=== PATIENT | female | born 1955 | race Caucasian/White ===

== ENCOUNTER 2024-03-31 09:10 | Emergency (ER) | payer MEDICARE, BC, SELFPAY ==
[2024-03-31] VITALS (7 sets, daily range): BP systolic 133–139; BP diastolic 55–80; PULSE 58–72; RESP 18; TEMP 37.1; O2SAT 98–100; BMI 22.0
--- NOTE | 2024-03-31 09:34 | CRLHL7_ITS ---
For Patients: As a result of the Century Cures Act, medical imaging exams and procedure reports are released immediately into your electronic medical record. You may view this report before your referring provider. If you have questions, please contact your health care provider. INDICATION: Swelling left side of jaw. Told on she has infection of old root canal. On antibiotics. Now has difficulty swallowing. TECHNIQUE: Axial intravenously infused CT cuts were performed from above the skullbase to the superior mediastinum. 75 mL of Isovue-370 was injected intravenously. FINDINGS: There is abundant streak artifact arising from dental amalgam. There is no osseous or soft tissue abscess identified although there is soft tissue edema adjacent to the left side of the mandible with mild mass-effect upon the left side of the oropharyngeal airway. The left piriform sinus is effaced. There is no abscess in this location. The left submandibular gland is mildly swollen and therefore the source of inflammation may be a mild left submandibular sialadenitis. There is no underlying salivary calculus. There is no lymphadenopathy between the skullbase and superior mediastinum. The major salivary glands and the thyroid gland appear normal. There is a small mucous retention cyst within the right maxillary sinus. The other paranasal sinuses appear normally aerated. No mucosal abnormality is identified within the nasal cavity or oral cavity. The visualized brain and orbits appear normal. There are no nodules or masses apices. Impression : There is no osseous or soft tissue abscess identified although there is soft tissue edema adjacent to the left side of the mandible with mild mass-effect upon the left side of the oropharyngeal airway. The left piriform sinus is effaced. There is no abscess in this location. The left submandibular gland is mildly swollen and therefore the source of inflammation may be a mild left submandibular sialadenitis. There is no underlying salivary calculus. Please note that all CT scans at this facility use dose modulation, iterative reconstruction, and/or weight-based dosing when appropriate to reduce radiation dose to as low as reasonably achievable. Dictated by Uriel Carr MD @ 03/31/2024 10:55:27 AM (Electronically Signed)
[2024-03-31 09:55] LABS: Creatinine, Point-of-Care* 0.8 mg/dl (0.6-1.3)
--- OUTSIDE RECORDS SUMMARY | 2024-03-31 10:04 | XMS_ITS | Clinical Summary ---
Author Organization [facility] Address [place], [place] [address] Care Team Providers Care Director Post Name Role Phone Esther Gibbons MD Unavailable [phone] Zhanna Romano Primary Care Provider Allergies Active Allergy Reactions Criticality Noted Date Comments Cats (Fur, Dander, Saliva) Other - Describe In Comment Field 09/24/2014 Dry eyes Medications Medication Sig Dispensed Refills Start Date End Date Status FA/MV,CA,IRON,MIN/L YCOPENE/LUT (MULTIVITAL ORAL) Take 1 Tab by mouth once daily. Active Cholecalciferol, Vitamin D3, (VITAMIN D-3) 5,000 unit tab Take 5,000 Units by mouth once daily. Active zolpidem (AMBIEN) 5 mg tabletIndications:O ther insomnia Take 1 Tablet (5 mg) by mouth at bedtime if needed for Sleep. 30 Tablet 11/07/2023 Active pregabalin (LYRICA) 100 mg capsuleIndications: Lumbar disc herniation,Chronic bilateral low back pain with right-sided sciatica Take 1 Capsule (100 mg) by mouth two times daily. 180 Capsule 3 02/17/2024 Active estradioL (ESTRACE) 0.01% (0.1 mg/g) vaginal creamIndications:Po stmenopausal INSERT 2 GRAMS VAGINALLY THREE TIMES PER WEEK 85 g 1 02/17/2024 Active tiZANidine (ZANAFLEX) 4 mg tabletIndications:L umbar disc herniation,Chronic bilateral low back pain with right-sided sciatica Take 1 Tablet (4 mg) by mouth every 8 hours if needed for Muscle Spasm. 60 Tablet 1 02/17/2024 Active methocarbamoL (ROBAXIN) 500 mg tabletIndications:L umbar disc herniation Take 1 Tablet (500 mg) by mouth every 8 hours if needed (muscle pain and spasm). 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 Ovarian mass 09/18/2014 Adnexal mass 09/16/2014 Colon polyp 09/16/2009 Overview (03/18/2016): Colonoscopy 09/2009 polyp repeat in 5 years Colonoscopy 03/2016 polyp repeat in 5 years Unspecified asthma(493.90) 04/12/2007 Allergic rhinitis, cause unspecified 04/12/2007 Resolved Problems Problem Noted Date Diagnosed Date Resolved Date Postmenopausal bleeding 09/16/201411/14 Encounters Date Type Department Care Team Description 03/30/2024 Refill [facility] [address] [place] [address] Zhanna Romano PA Refill Request (Tizanidine) 03/19/2024 12:30 PM SAAS ARCHITECT Procedure Only [facility] [address] [place] [id number] Erin Dyson L Ac Acupuncture 03/19/2024 Travel 03/08/2024 11:30 AM CDT Procedure Only [facility] [address] [place] [address] Erin Dyson L Ac Acupuncture 03/08/2024 Travel 03/01/2024 11:30 AM CDT Procedure [place] [address] [place] [id number] Erin Dyson L Ac Acupuncture 03/01/2024 Travel 02/24/2024 12:00 PM CDT Procedure Only [facility] [address] [facility] [place] [id number] Erin Dyson L Ac Acupuncture 02/23/2024 Travel 02/17/2024 10:30 AM CDT Office Visit [address] [place] [address] Zhanna Romano PA Medicare ANNUAL (subsequent) Visit (68 years old); Musculoskeletal Problem (Having a hard time sleeping due to disc issues - wondering about muscle relaxers. - Is taking a lot of ibuprofen, what other options are there?) 02/17/2024 Travel from Last 3 Months Immunizations Name Administration Dates Next Due AMB INFLUENZA, IIV4 (AGE=>6M OS) MDV (Flu Clinic Only) 02/20/2018 AMB Influenza, IIV3 (Age >=3 years)(Flu Clinic Only) 03/07/2013,02/01/2012,03/08/2011,2009,03/12/2008 AMB Influenza, IIV4 PF (=>6 mos Flulaval,Fluzone Fluarix)(Flu Clinic Only) 02/16/2019,03/19/2014 COVID-19 vaccine (Moderna 100mcg/0.5mL) PF, MDV 08/05/2020 Influenza A (H1N1), Inactivated 04/16/2009 Influenza A (H1N1), Inactiva jayden (Age >=3 Years) 04/16/2009 Influenza, IIV3 (Age 6-35 mos) 03/08/2011 Influenza, IIV3 (Age >=3 years) 03/07/20 13,02/01/2012,03/24/2010,2008,03/12/2008,04/12/2007,03/19/2006,1 ,02/27/2004 Influenza, IIV4 01/26/2017, 6,03/13/2015,2013 Influenza, IIV4 (=>6mos) MDV 02/21/2018 Influenza, Inactivated AIIV4 (Age 65+ Years) Preserv Free 02/15/2023 Influenza, Inactivated IIV3 (Age 65+ Years) Preserv Free 02/17/2024 Influenza,CCIIV4 PRESERV FREE 02/20/2020 Pneumococcal Conj 20-valent (Prevnar 20) 12/08/2021 Td (Age >=7 Years) 08/23/2005 Td, Preservative Free (age > = 7 Years) 07/13/2017 Tdap 04/12/2007 Zoster (Shingrix-RZV, recombinant) 10/25/2018, Family History Medical History Relation Name Comments Good Health Brother 1 Hyperlipidemia Brother 2 Hyperlipidemia Brother 3 Heart Disease Father blocked vein; stint place, age 90 Diabetes Mother type II, age mi d 70's Alcohol/Drug Paternal Grandfather alcohol Heart Disease Paternal Grandfather NC 50' s Good Health Sister Cancer-breast No Family History Relation Name Status Comments Brother 1 Brother 2 Brother 3 Father Mother Paternal Grandfather Sister Social History Tobacco Use Types Packs/Day Years Used Date Smoking Tobacco: Never Smokeless Tobacco: Never Tobacco Cessation:Counseling Given: Yes Alcohol Use Standard Drinks/Week Comments Yes 2 (1 standard drink = 0.6 oz pur e alcohol) occasionally, maybe 2/wk PHQ-2 Answer Date Recorded PHQ-2 TOTAL SCORE 0 02/17/2024 Social Connections Answer Date Recorded Do you often feel lonely or isolated from those around you? 0 02/17/2024 Financial Resource Strain Answer Date R ecorded Difficulty of Paying Living Expenses 3 02/17/2024 Difficulty of Paying Living Expenses Not on file 02/17/2024 Food Insecurity Answer Date Recorded Do you worry your food will run out before you are able to buy more? 1 02/17/2024 Transportation Needs Answer Date Record ed Does lack of transportation keep you from medica l appointments? 1 02/17/2024 Does lack of transportation keep you from work, meetings or getting things that you need? 1 02/17/2024 Housing Stability Answer Date Recorded What is your housing situation today? 1 02/17/2024 Sex and Gender Information Value Date Recorded Sex Assigned at Not on file Gender Identity Not on file Sexual Orientation Not on file Obstetrics History Para Term AB IAB SAB Ectopic Multiple Livin g Live Births 4 4 3 3 Date Outcome GA Total Labor Labor/2nd/3rd Weight Sex Type Anes PTL Betzaida A1 A5 Name Clin Term Term Term Para Last Filed Vital Signs Vital Sign Reading Time Taken Comments Blood Pressure 115/76 02/17/2024 10:45 AM CDT Pulse 56 02/17/2024 10:45 AM CDT Temperature 36.8 ??C (98.3 ??F) 10/29/2021 8:48 AM CD T Respiratory Rate 16 05/29/2018 10:14 AM SAAS ARCHITECT Oxygen Saturation 100% 02/15/2023 7:42 AM CDT Inhaled Oxygen Concentration - - Weight 63 kg (138 lb 14.4 oz) 02/17/2024 10:45 A M CDT Height 163.8 cm (5' 4.5) 02/17/2024 10:45 AM CD T Body Mass Index 23.47 02/17/2024 10:45 AM CDT Plan of Treatment Upcoming Encounters Date Type Department Care Team (Late st Contact Info) Description 04/05/2024 10:00 AM SAAS ARCHITECT Procedure Only [facility] [address] [place] [address] Erin Dyson L [address] [place] [address] 04/06/2024 10:00 AM SAAS ARCHITECT Office Visit [facility] [address] [place] [address] Jose M Cheatham AuD [address] [place] [address] Health Maintenance Due Date Last Done Comments COVID-19 vaccine series ( season) 2024 04/16/2021, 09/03/2020, 08/05/2020 Mammogram for age 45-75 03/29/2024 03/29/20, 05/19/2021, 08/14/2018, Additional history exists BMI (ht and wt on same day) for age 18+ 02/16/2025 02/17/2024, 02/15/2023, 12/08/2021, Additional history exists Depression screening for age 12+ 02/16/2025 02/17/2024, 02/15/2023, 12/08/2021, Additional history exists Medicare Wellness for age 65+ 02/17/2025, 02/15/2023, 12/08/2021 Colonoscopy through age 75 08/25/202608/25, 08/25/2021, 08/25/2021, Additional history exists Tetanus booster 07/13/2027 07/13/2017, 03/17, 08/23/2005 Lipids for age 45-75 02/16/2029 02/17/2024, 02/15/2023, 12/08/2021, Additional history exists Tdap Completed 04/12/2007 Zoster (shingles) series for age 50+ Completed 10/25/2018, 08/08/2018 Hepatitis C screening for ag e 18-79 Completed 08/13/2020 Pneumococcal series for age 65+ Completed DEXA/DXA scan for age 65+ Completed 12/14/2021, Influenza for age 65+ Completed 02/17/2024 , 02/15/2023, 02/20/2020, Additional history exists Procedures Procedure Name Priority Date/Time Associated Diagnosis Comments ACUPUNCTURE PLAN OF CARE Routine 03/19/2024 12:29 PM SAAS ARCHITECT Chronic bilateral low back pain with right-sided sciatica Other low back pain ACUPUNCTURE PLAN OF CARE Routine 03/08/2024 11:29 AM CDT Chronic bilateral low back pain with right-sided sciatica Other low back pain ACUPUNCTURE PLAN OF CARE Routine 03/01/2024 11:29 AM CDT Chronic bilateral low back pain with right-sided sciatica Other low back pain BASIC METABOLIC PANEL Routine 02/17/2024 11:53 AM CDT NSAID long-term use Screening for diabetes mellitus LIPID PANEL W REFLEX MEASURED LDL Routine 02/17/2024 11:53 AM CDT Screening cholesterol level XR MAMMO BILAT SCREENING Routine 03/29/2023 9:35 AM SAAS ARCHITECT Visit for screening mammogram XR DXA BONE DENSITY 2 SITES AXIAL Routine 12/14/2021 9:50 AM CDT Menopause Osteopenia, unspecified location COLONOSCOPY SCREENING Routine 08/25/2021 7:53 AM CDT History of colon polyps ANTI HCV Routine 08/13/2020 8:20 AM CDT Need for hepatitis C screening test from Last 3 Months or Most Recently Relevant to Health Maintenance Results * (ABNORMAL) LIPID PANEL W REFLEX MEASURED LDL (02/17/2024 11:53 AM CDT) CHOLESTEROL, TOTAL 234(H) <200 mg/dL [facility] HDL CHOLESTEROL 63 > OR = 50 mg/dL [facility] TRIGLYCERIDES 285(H) <150 mg/dL [facility] Comment: If a non-fasting specimen was collected, consider repeat triglyceride testing on a fasting specimen if clinically indicated. Diomedes et al. J. of Clin. Lipidol. 2015;9:129-169. LDL-CHOLESTEROL 127(H) mg/dL (calc) [facility] Comment: Reference range: <100 Desirable range <100 mg/dL for primary prevention; ?? <70 mg/dL for patients with CHD or diabetic patients with > or = 2 CHD risk factors. LDL-C is now calculated using the Riky calculation, which is a validated novel method providing better accuracy than the Friedewald equation in the estimation of LDL-C. Alo SS et al. HEAVEN. 2013;310(19): 2705-3864 (http://education.Organic Motion/faq/YGJ278) CHOL/HDLC RATIO 3.7 <5.0 (calc) [facility] NON HDL CHOLESTEROL 171(H) <130 mg/dL (calc) [facility] Comment: For patients with diabetes plus 1 major ASCVD risk factor, treating to a non-HDL-C goal of <100 mg/dL (LDL-C of <70 mg/dL) is considered a therapeutic option. Blood BLOOD SPECIMEN / Unknown 02/17/2024 11:53 AM CDT 02/17/2024 11:53 AM CDT Zhanna CALVERT CHEMISTRY [facility] [address] [place] [address], [facility] [address] [place] [address] * (ABNORMAL) BASIC METABOLIC PANEL (02/17/2024 11:53 AM CDT) GLUCOSE 88 65 - 99 mg/dL [facility] Comment: ? Fasting reference interval UREA NITROGEN (BUN) 18 7 - 25 mg/dL [facility] CREATININE 0.82 0.50 - 1.05 mg/dL [facility] EGFR 78 > OR = 60 mL/min/1. 73m2 [facility] BUN/CREATININE RATIO SEE NOTE: 6 - 22 (calc) [facility] Comment: ?? Not Reported: BUN and Creatinine are within ?? reference range. ? SODIUM 134(L) 135 - 146 mmol/L [facility] POTASSIUM 4.4 3.5 - 5.3 mmol/L [facility] CHLORIDE 99 98 - 110 mmol/L [facility] CARBON DIOXIDE 30 20 - 32 mmol/L [facility] ELECTROLYTE BALANCE 5(L) 7 - 17 mmol/L (calc) [facility] CALCIUM 9.2 8.6 - 10.4 mg/dL [facility] Blood BLOOD SPECIMEN / Unknown 02/17/2024 11:53 AM CDT 02/17/2024 11:53 AM CDT Zhanna CALVERT CHEMISTRY [facility] [address] [place] [address], [facility] [address] [place] [address] * XR MAMMO BILAT SCREENING (03/29/2023 9:35 AM SAAS ARCHITECT) Anatomical Region Laterality Modality BREASTS, Breast Left, Breast Right Bilateral Mammography Impressions 03/29/2023 3:43 PM SAAS ARCHITECT ??There is no radiographic evidence for malignancy. ??Recommend annual mammograms. MAMMOGRAM ASSESSMENT: ??ACR 1 Negative PATIENTS: You will also receive a letter with your examination results in an easy to read format. ??If you have questions about your results, please contact your referring provider. Narrative 03/29/2023 3:43 PM SAAS ARCHITECT For Patients: As a result of the Century Cures Act, medical imaging exams and procedure reports are released immediately into your electronic medical record. You may view this report before your referring provider. If you have questions, please contact your health care provider. XR MAMMO BILAT SCREENING [[id number]] CLINICAL HISTORY: ??This is an asymptomatic 67 y.o. patient. INDICATION FOR EXAM: Mammogram Screening. TECHNIQUE: CC & MLO views were obtained. ??This study was evaluated with the assistance of Computer-Aided Detection. COMPARISON FILM: Yes [facility] 08/14/[address] [facility] FINDINGS: ??The breasts are heterogeneously dense, which may obscure small masses. There are no dominant masses, suspicious micro calcifications or areas of architectural distortion. Zhanna CALVERT MAMMO * (ABNORMAL) XR DXA BONE DENSITY 2 SITES AXIAL [10877.1] (12/14/2021 9:50 AM CDT) Anatomical Region Laterality Modality Spine, HIPS, HIPL, HIPR Other Impressions 12/16/2021 4:39 PM CDT Osteopenia. RECOMMENDATIONS: The National Osteoporosis Foundation recommends pharmacologic treatment for patients with T-scores of -2.5 or less, patients with prior history of fragility fractures, or patients with 10-year probability of greater than 3% at hips or greater than 20% of suffering major osteoporotic fractures. Recommend continued optimization of calcium and vitamin D intake through dietary means and/or supplementation and regular exercise. Repeat scan recommended in 3-5 years. Zhanna Romano PA-C [facility] 12/16/2021 Narrative 12/16/2021 4:39 PM CDT For Patients: Results are automatically released to your [employer]shot ([employer]) account once available, in compliance with federal regulations. This means that you may see your results before your provider has had a chance to review them. Please allow 2-3 business days for your provider to comment on the results. XR DXA Bone Mineral Density (BMD) EXAM LOCATION: [facility] [address] [facility] [address] PATIENT NAME: Shamika Kimble DATE OF : 1955 EXAM DATE: 12/14/2021 REQUESTING PROVIDER: Zhanna Romano PA GENDER AT : female HEIGHT: 5' 4.7 (12/08/2021) WEIGHT: ??132 lb (12/08/2021) MENOPAUSAL STATUS: Postmenopausal RACE/ETHNICITY: White RISK FACTORS: Family History of Hip Fracture (parental), Steroid Medication (non-topical) and White Race CURRENT MEDICATION FOR BONE LOSS: NONE INDICATION: Menopause COMPARISON DATE(S): 2018 DXA scans are compared to prior studies for a patient only when the two (or more) studies were performed on the same scanner. It is not possible to compare data generated on one scanner to data from another because there are not standards in DXA equipment. This applies even if the two scanners are made by the same whirley operator. PROCEDURE: Dual-energy x-ray absorptiometry performed with routine technique. Reporting is completed in the form of a T-score. The T-score represents the standard deviation from peak bone mass based on young healthy adult. A Z-score is used for diagnosis in premenopausal women, and for men under the age of 50. FINDINGS: RESULT LUMBAR SPINE L1 - L2 (WITHOUT L3 & L4) BMD: 1.329 g/cm2 T-Score: + 1.3 Z-Score: + 3.0 Change from prior in 2018: ??Decrease 2.1%. RESULTS FEMUR Left femoral neck BMD: 0.780 g/cm2 T-Score: - 1.9 Z-Score: - 0.3 Change from prior in 2018: ??Decrease 2.4%. Right femoral neck BMD: 0.792 g/cm2 T-Score: - 1.8 Z-Score: - 0.2 Change from prior in 2018: ??Decrease 6.9%. Left hip BMD: 0.805 g/cm2 T-Score: - 1.6 Z-Score: - 0.3 Change from prior in 2018: ??Decrease 3.0%. Right hip BMD: 0.812 g/cm2 T-Score: - 1.6 Z-Score: - 0.2 Change from prior in 2018: ??Decrease 5.6%. WHO criteria: Normal: T-score at or above -1 SD Osteopenia: T-score between -1.1 and -2.4 SD Osteoporosis: T-score at or below -2.5 SD FRAX RISK CALCULATION (USED FOR OSTEOPENIA ONLY): 10-year probability of major osteoporotic fracture: 18.2%. 10-year probability of hip fracture: 1.4%. Zhanna CALVERT DEXA * COLONOSCOPY (08/25/2021 8:36 AM CDT) 08/25/2021 8:36 AM CDT Narrative Transcriptions Alo Carrasco MD - 08/25/2021 9:13 AM CDT Patient Name: Shamika Kimble Procedure Date: 08/25/2021 Gender: Female Date of : 1955 Admit Type: Outpatient Procedure: Colonoscopy Proceduralist: Alo Carrasco MD , Melissa Aguayo, RN(Nurse) Referring MD: Zhanna Romano Indications/Pre-Op Diagnosis: High risk colon cancer surveillance:Personal history of sessile serrated colon polyp(less than 10 mm in size) with no dysplasia, Last colonoscopy: March 2016 Medications: Fentanyl 100 micrograms IV, Midazolam 3 mgIV, The level of sedation administered wasmoderate Procedure Description: The patient had risks, benefits and alternatives explained to andgave informed consent. The patient had a stable cardiopulmonary status and judged an adequate candidate for conscious sedation. The [id number] was passed through the anus and advanced tothe cecum, identified by appendiceal orifice and ileocecal valve. The colonoscopy was performed without difficulty. The patient toleratedthe procedure well. The quality of the bowel preparation was good. The ileocecal valve, appendiceal orifice, and rectum were photographed. Complications: No immediate complications. Estimated Blood Loss & Specimen: Estimated blood loss: none. Specimen collected - None Findings: The perianal and digital rectal examinations were normal. Many retained seeds were found in the colon. The exam was otherwise without abnormality on direct and retroflexion views. Impressions/Post-Op Diagnosis: - The examination was otherwise normal on direct and retroflexionviews. - No specimens collected. Recommendation: - Patient has a contact number available for emergencies. The signsand symptoms of potential delayed complications were discussed with the patient. Return to normal activities tomorrow. Written discharge instructions were provided to the patient. - Resume previous diet. - Continue present medications. - Repeat colonoscopy in 5 years for surveillance. - For future colonoscopy the patient will require an extended preparation, Peg 4L and avopid seeds for 1 week. If there are any questions, please contact the auto tune up mechanic. Moderate Sedation: Moderate (conscious) sedation was administered by the endoscopy nurse and supervised by the endoscopist. The following parameters were monitored: oxygen saturation, heart rate, respiratory rate, blood pressure, adequacy of pulmonary ventilation and reponse to care. Please refer to the patient's medical record flowsheets and nursing notes for moderate sedation details. Total physician intraservice time was 15 minutes. Alo Carrasco MD 08/25/2021 9:13:34 AM This report has been signed electronically. Note Initiated On: 08/25/2021 8:36 AM Procedure Code(s): --- Professional --- 39714, Colonoscopy, flexible; diagnostic, including collection of specimen(s) bybrushing or washing, when performed (separateprocedure) Diagnosis Code(s): --- Professional --- Z86.010, Personal history of colonicpolyps CPT copyright 2020 [employer]. All rights reserved. The codes documented in this report are preliminary and upon stone processing machine operator reviewmay be revised to meet current compliance requirements. Scope In: 8:49:06 AM Scope Withdrawal Time 0 hours 7 minutes 5 seconds Scope Out: 9:03:31 AM Alo Carrasco MD PROCEDURE ORD * ANTI HCV (08/13/2020 8:20 AM CDT) HEPATITIS C ANTIBODY Non-React za Non-React za 08/13/2020 3:00 PM CDT [facility] Comment:Antibodies to HCV no t detected; does not exclude the possibility of exposure to HCV. Blood BLOOD SPECIMEN / Unknown Venipuncture / Unknown 08/13/2020 8:20 AM CDT 08/13/2020 9:06 AM CDT Zhanna CALVERT [facility] [address] [place] [address], from Last 3 Months or Most Recently Relevant to Health Maintenance Advance Directives * Full Code (Latest Code Status on File) Date Activated Date Inactivated Comments 12/26/2014 9:08 AM 12/26/2014 4:46 PM * Full Code Date Activated Date Inactivated Comments 12/26/2014 5:36 AM 12/26/2014 9:08 AM * Full Code Date Activated Date Inactivated Comments 09/26/2014 11:26 AM 09/26/2014 10:06 PM Question Answer Comments Code Status Discussion: Not Discussed Care Teams Director Post Relationship Specialty Start Date End Date Zh[place] [address] PCP - General Physician [facility] Director 02/23/19 Esther Gibbons MD Oncology - Gynecologic 03/09/16
--- OUTSIDE RECORDS SUMMARY | 2024-03-31 10:04 | XMS_ITS | Data Portability ---
Author Organization [place] - [facility], [facility] - OP Address [address] [place] [address] Care Team Providers Care Television Maintenance Man Name Role Phone KENDRA ANNA Primary Care Provider Assessment Encounter Date Assessment Date Assessment LastModified by Organization Details LastModified Time 04/01/2023 04/01/2023 Assessment Chronic low back pain L4-L5 HNP Degenerative disc disease ??? Plan: -Discussed the patient's physical exam and reviewed their imaging - Discussed all treatment options and agreed upon the following: - All questions answered to the patient's satisfaction - They will call the clinic or return if they have any interim concerns - Imaging: L CT of spine ordered - Activity: WBAT, Instructed to BLTs, avoid strenuous activity and heavy lifting - Pain control: recommended course of OTC NSAIDs and tylenol if no medical contraindications - FU: Patient to return to the clinic w/ JEZ 1mo after L CHRISTI -L CHRISTI ahaberer Not available 04/01/2023 13:14:58 Plan of Treatment Reminders Order Date Submit Date Provider Last Modified By Organization Details Last Modified Time Details Appointments None record ed. Lab None record ed. Referral None record ed. Procedures None record ed. Surgeries None record ed. Imaging None record ed. Medication Orders None record ed. Patient TargetsNo targets recorded. Patient Instructions Encounter Date Encounter Id Patient Instructions Last Modified By Organization Details Last Modified Time 04/01/2023 [id number] Discussion: I discussed the clinical findings with the patient. All questions were answered. Risk factors reviewed with the patient and a L CHRISTI, LCT was ordered. Synopsis: 04/01/23, AH, JOIE: No Img: HNP, DDD, LBP: L CHRISTI, L CT W/o, f/u w/ JEZ 1mo after inj ahaberer Not available 04/01/2023 13:14:51 Reason for Referral None Reported. Problems No Known Problems Medical Equipment None Reported. Allergies No known drug allergies Medications Name Sig Start Date Stop Date Status Note LastModified by Organization Details LastModified Time zolpidem 5 mg tablet TAKE 1 TABLET BY MOUTH EVERY NIGHT AT BEDTIME NEEDED FOR SLEEP. USE SPARINGLY active Not Available Not Available No t Available estradiol 0.01% (0.1 mg/gram) vaginal cream INSERT 2 GRAMS VAGINALLY THREE TIMES PER WEEK active Not Available Not Available No t Available pregabalin 100 mg capsule TAKE 1 CAPSULE BY MOUTH TWICE DAILY active Not Available Not Available No t Available BinaxNOW COVID-19 Ag Self Test kit TEST DIRECTED TODAY 04/01 completed Not Available Not Available Not Available Vitals Date Recorded Body height Heart rate Body temperature Oxygen saturation Oxygen saturation in Arterial blood by Pulse oximetry Body mass index (BMI) Body weight Provider Name and Address Organization Details Last Updated DateTime 3 165.1 cm 61 /min 98.4 [degF] 97 % 97 % 21.8 kg/m2 30704.6 g Gavin Phill ramirez [employer] 3 12:22:55 Social History Question Answer Notes LastModified by [employer] ion Details LastModified Time Tobacco Smoking Status Never Smoker Gavin Roperjelena arroyo [employer] 04/01/2023 12:25:03 What Is Your Level Of Alcohol Consumption? Occasional Information not available 04/01/2023 How Many Times Per Week Do You Consume Alcohol? 1-2 Times Per Week Information not available 04/01/2023 Are You Currently Employed? No Information not available 04/01/2023 What Was The Date Of Your Most Recent Tobacco Screening? 04/01/2023 Information not available 04/01/2023 Do You Use Any Illicit Or Recreational Drugs? Yes 1/2 CBD Gummy Information not available 04/01/2023 Has Tobacco Cessation Counseling Been Provided? No Information not available 04/01/2023 Do You Or Have You Ever Used Any Other Forms Of Tobacco Or Nicotine? No Information not available 04/01/2023 Sex: Unknown Functional Status None recorded. Mental Status None recorded. Family History Relationship Description Onset Age of this Age Resolved Age Notes LastModified by Organization Details LastModified Time Mother Diabetes mellitus [email or web address] Not available 03/16 12:23:49 Paternal Grandfather Heart disease [email or web address] Not available 03/16 12:24:00 Medical History Condition Response Gout N Blood Diseases N MRSA N Blood Transfusion N Hernia N Head Trauma/Injury N Lung Disease N Depression N COPD N Developmental or Behavioral Disorders N Pacemaker N Difficulty Swallowing N Anesthesia Complications N Cystic Fibrosis N Anxiety Disorder N Muscle, Joint, or Bone Problems Y Obesity N Vision or Eye Problems N Arthritis Y Blood Clot N Stroke N Bladder or Kidney Problems N High Cholesterol N Headaches N Fibromyalgia N Allergies/Hayfever N Parkinson's Disease N Ear or Hearing Problems Y Hospitalizations N GI Problems N ADD/ADHD N Skin Problems N Anemia N PTSD N Multiple Sclerosis N Meningitis N Heart Attack ([place]) N Diabetes N Immunocompromised N Hepatitis/Liver Disease N Bleeding Disorder N Cancer/Tumors Y Heart Murmur N Cerebral Palsy N AIDS/HIV N Congestive Heart Failure (CHF) N Abuse/Domestic Violence N Asthma N Peripheral Vascular Disease N Epilepsy/Seizures N AFib N Seizures N Reflux/GERD N Sleep Apnea N Thyroid Disorder N Aneurysm N Neuropathy N Pulmonary Embolism N Hypertension N Autism Spectrum Disorder (ASD) N Osteoporosis N Gynecological HistoryNo gynecological history recorded. Obstetrics History GPAL:G 0 P 0 0 0 0 Past Encounters Encounter ID Performer Location Encounter Start Date Encounter Closed Date Diagnosis/Indication Diagnosis SNOMED-CT Code Diagnosis ICD10 Code [id number] ABRAHAM STANTON PA-C [facility] [address] [place] [address] 04/01/2023 11:51:59 04/01/2023 15:28:37 Herniation of nucleus pulposus 82743434 M53.80 Degenerati on of lumbar intervertebral disc 30545644 M51.36 Health Concerns Section Related Observation LastModified by Organization Detai ls LastModified Time None Recorded Concern Status LastModified by Organization Details LastModified Time None Recorded Advance Directives Directive None Recorded Payers Encounter Date Sequence Insurance Name Policy Number Policy Gupta Covered Member ID Gupta Member ID Guarantor Name 04/01/2023 2 [place] [employer] Addison Lynn [id number] Shamika Kimble 04/01/2023 1 [place] [facility] Shamika Kimble [id number] 2 Shamika Kimble Notes Date Note Type Note Provider Name and Address Organization Details Recorded Time 04/01/2023 text/html Chief Complaint: HPI:Shamika is a 67-year-old female presenting to the clinic to establish care. She knows that she has had back pain for quite some time and notes that she was once told that she had a herniated disc at L4 to L5.She reports having imaging done in November of 2020. I was unable to see the actual imaging but she carried in the report. She reports doing several rounds of physical therapy, the last she just finished. She also notes doing chiropractic as well as acupuncture therapy and gives temporary relief. She also stays very active as well as participating in dry needling, TENS unit, walking four times a week as well as swimming. She notes that her pain is primarily in her low back with some symptoms rating down her right lower extremity. She notes numbness in her right foot. She currently takesLyrica 100 milligrams BID. She's unsure if this medication is actually helping her though. We discussed the opportunity to increase this medication but patient is not interested at this time.She notes that she would also like to discuss the findings and her options with her prior to scheduling any follow-ups. We are both in agreement with this plan but we'll move forward with the work up orders and she will be in contact with us.I offered the patient a brace, which she notes that she already has one in her care and is not interested in me putting in an order for an LSO. Pain level right now: 4/10Pain range: 6/10Specific location of worst pain: LBP R>L ABRAHAM STANTON PA-C [address], [place], [address], [facility] 04/01/2023 13:18:30 OBGyn Episode No OBEpisode recorded.
--- NOTE | 2024-03-31 10:22 | ED.GENADULT ---
HPI - General Adult General Chief complaint: Dental/Oral/Mouth Injury/Pain Stated complaint: infection in throat, difficulty swallowing Time Seen by Provider: 03/31/24 09:18 History of Present Illness HPI narrative: Patient is a 68-year-old woman who is in reasonable health but underwent root canal 2 days ago. Since that time although she is on amoxicillin she has had significant swelling of the left side of her mandible at the surgical site extending down into the left aspect of her lateral and anterior neck. She has had no fevers no chills no night sweats. She has significant trismus and is unable to swallow. Patient has had no change in her sensorium. No seizure activity no cough no sputum production no chest pain no shortness of breath. Related Data Home Medications ?Medication ?Instructions ?Recorded ?Confirmed amoxicillin 875 mg tablet 875 mg PO BID 03/31/24 03/31/24 estradiol 0.01% (0.1 mg/gram) 2 g vaginal 3XW 03/31/24 03/31/24 vaginal cream pregabalin 100 mg capsule 100 mg PO BID 03/31/24 03/31/24 tizanidine 4 mg tablet 4 mg PO 3XD 03/31/24 03/31/24 Allergies Allergy/AdvReac Type Severity Reaction Status Date / Time No Known Drug Allergies Allergy Verified 03/31/24 11:17 Review of Systems Status of ROS: Reports: 10 or more systems reviewed and unremarkable except as noted in History and below [facility] Social History Smoking Status: Never smoker Do you use any of these nicotine containing products: None How often do you have a drink containing alcohol: never How often do you have six or more drinks on one occasion: Never AUDIT-C Alcohol total score: 0 Non-prescribed substance use: denies use service: No Exam Narrative: Exam Narrative: EXAM GENERAL: Patient appears comfortable with significant swelling on the left side of her mandible extending into the left side of her neck without erythema. Trismus noted. EYES: No scleral icterus. ENT: Tympanic membranes and oropharynx normal. THYROID: no thyroid nodules or thyromegaly. LYMPH: No supraclavicular or cervical lymphadenopathy. SKIN: Visible skin seen during exam normal or with benign process only. EXT: No dependent lower extremity pedal edema. HEART: Regular rate and rhythm with no murmurs, rubs, or gallops. LUNGS: Clear to auscultation bilaterally with no crackles or wheezes. ABD: Soft, non tender, non distended. PSYCH: Good eye contact, speech is not pressured. Const: Vital Signs, click to edit/add: Vital Signs - 24 hr 03/31/24 09:14 Temperature 98.8 F Pulse Rate [Right Pulse Oximeter] 70 Respiratory Rate 18 Blood Pressure [Ri ght Upper Arm] 133/80 Pulse Oximetry 98 Oxygen Delivery Me thod Room Air Course Course ED Course: CT of the neck soft tissue pending. Vital Signs Vital signs: Initial Vital Signs Temperature 98.8 F 03/31/24 09:14 Temperature Source Temporal Artery Scan 03/31/24 09:14 Pulse Rate 70 03/31/24 09:14 Pulse Rhythm Regular 03/31/24 09:14 Respiratory Rate 18 03/31/24 09:14 Blood Pressure 133/80 03/31/24 09:14 Blood Pressure Mean 97 03/31/24 09:14 Blood Pressure Position Sitting 03/31/24 09:14 Pulse Oximetry 98 03/31/24 09:14 Oxygen Delivery Method Room Air 03/31/24 09:14 Vital Signs Temperature 98.8 F 03/31/24 09:14 Pulse Rate 70 03/31/24 09:14 Respiratory Rate 18 03/31/24 09:14 Blood Pressure 133/80 03/31/24 09:14 Pulse Oximetry 98 03/31/24 09:14 Oxygen Delivery Method Room Air 03/31/24 09:14 Temperature 98.8 F 03/31/24 09:14 Pulse Rate 70 03/31/24 09:14 Respiratory Rate 18 03/31/24 09:14 Blood Pressure 133/80 03/31/24 09:14 Pulse Oximetry 98 03/31/24 09:14 Oxygen Delivery Method Room Air 03/31/24 09:14 Medications Administered Medications: Discontinued Medications Generic Name Dose Route Start Last Admin Trade Name Freq PRN Reason Stop Dose Admin Dexamethasone 10 mg 03/31/24 11:21 03/31/24 11:56 Dexamethasone 10 Mg/Ml Inj IVP 03/31/24 11:22 10 mg ONCE ONE Administration Piperacillin Sod/Tazobactam 100 mls @ 200 mls/hr 03/31/24 11:20 03/31/24 11:48 Sod 3.375 gm/ Sodium Chloride IVPB 03/31/24 11:21 200 mls/hr ONCE ONE Administration Medical Decision Making MDM Narrative Medical decision making narrative: PATIENT IS A 68-YEAR-OLD WOMAN WHO HAD DENTAL WORK DONE 2 DAYS AGO AND NOW HAS A IMPENDING AIRWAY COMPROMISE. SHE HAS SIGNIFICANT SWELLING IN THE LEFT SIDE OF HER MANDIBLE INTO THE NECK AND SUPERIOR MEDIASTINUM. THIS IS CONSISTENT WITH CELL ADENITIS AND LYMPHADENOPATHY. I DID REVIEW THE FINDINGS WITH EAR NOSE AND THROAT AND AT THIS TIME WE ARE GOING TO BE ELECTIVELY INTUBATING THE PATIENT AND TRANSFERRING TO TERTIARY CARE. PATIENT WAS PROVIDED WITH INFORMED CONSENT. EAR NOSE AND THROAT WILL BE AT THE BEDSIDE AT THE TIME OF INTUBATION WELL ANESTHESIA. PATIENT WILL RECEIVE IV ZOSYN AND IV DEXAMETHASONE AND HAS BEEN ACCEPTED TO [facility] ICU. Lab Data Labs: Lab Results 03/31/24 Range/Units 09:53 POC Creatinine 0.8 (0.6-1.3) mg/dl Discharge Plan Discharge Clinical Impression: Airway compromise Patient Disposition: Xfer [facility] Activity Level: Other Discharge Diet: Other Prescriptions: No Action tizanidine 4 mg tablet 4 mg PO 3XD amoxicillin 875 mg tablet 875 mg PO BID estradiol 0.01 % (0.1 mg/gram) cream 2 g vaginal 3XW pregabalin 100 mg capsule 100 mg PO BID Follow Up/Referrals: Zhanna Romano PA-C [Primary Care Provider] - Stand Alone Forms: [employer] Info Instructions
[2024-03-31] MEDS: PIPERACILLIN/TAZOBACTAM 3.375 GM in 0.9 % SODIUM CHLORIDE Mini-bag 100 ML IVPB (11:48)
[2024-03-31] MEDS: dexAMETHasone 10 MG/ML inj IVP (11:56)
--- NOTE | 2024-03-31 12:08 | ED.NURSE ---
Pt report given to MACARIO Garcia, at [facility].
--- OUTSIDE RECORDS SUMMARY | 2024-03-31 12:58 | XMS_ITS | Clinical Summary ---
Author Organization [facility] [facility] Address [place], [place] [address] Care Team Providers Care Community Service Specialist Name Role Phone Esther Gibbons MD Unavailable [phone] Zhanna Romano Primary Care Provider Allergies Active [...] Encounters Date Type Department Care Team Description 03/31/2024 1:30 PM SALESPERSON NECKTIES Hospital Encounter [facility] [address] [place] [address] Erasto Perkins, 03/30/2024 Refill [facility] [place] [address] Zhanna Romano PA Refill Request (Tizanidine) 03/19/2024 12:30 PM SALESPERSON NECKTIES Procedure Only [facility] [address] [facility] [place] [address] Erin Dyson L Ac Acupuncture 03/19/2024 Travel 03/08/2024 11:30 AM CDT Procedure Only [facility] [place] [address] Erin Dyson L Ac Acupuncture 03/08/2024 Travel 03/01/2024 11:30 AM CDT Procedure Only [facility] [place] [address] Erin Dyson L Ac Acupuncture 03/01/2024 Travel 02/24/2024 12:00 PM CDT Procedure Only [facility] [place] [address] Erin Dyson L Ac Acupuncture 02/23/2024 Travel 02/17/2024 10:30 AM CDT Office Visit [facility] [address] [place] [address] Zhanna Romano PA Medicare ANNUAL (subsequent) Visit [...] Paternal Grandfather alcohol Heart Disease Paternal Grandfather IA 50' s Good Health Sister Cancer-breast No [...] T Respiratory Rate 16 05/29/2018 10:14 AM SALESPERSON NECKTIES Oxygen Saturation 100% 02/15/2023 7:42 AM CDT Inhaled Oxygen Concentration - - Weight 63 kg (138 lb 14.4 oz) 02/17/2024 10:45 A M CDT Height 163.8 cm (5' 4.5) 02/17/2024 10:45 AM CD T Body Mass Index 23.47 02/17/2024 10:45 AM CDT Plan of Treatment Upcoming Encounters Date Type Department Care Team (Late st Contact Info) Description 04/05/2024 10:00 AM SALESPERSON NECKTIES Procedure Only [facility] [address] [place] [address] Erin Dyson L [address] [place] [address] 04/06/2024 10:00 AM SALESPERSON NECKTIES Office Visit [facility] [address] [place] [address] Jose M Cheatham AuD [address] [place] [phone] Health Maintenance Due Date Last Done Comments COVID-19 vaccine series (2023- season) 2024 04/16/2021, 09/03/2020, 08/05/2020 Mammogram for age 45-75 03/29/2024 03/29/20 23, 05/19/2021, 08/14/2018, Additional history exists BMI (ht [...] PLAN OF CARE Routine 03/19/2024 12:29 PM SALESPERSON NECKTIES Chronic bilateral low back pain with right-sided [...] MAMMO BILAT SCREENING Routine 03/29/2023 9:35 AM SALESPERSON NECKTIES Visit for screening mammogram XR DXA BONE [...] AM CDT) CHOLESTEROL, TOTAL 234(H) <200 mg/dL [facility] HDL CHOLESTEROL 63 > OR = 50 mg/dL [facility] TRIGLYCERIDES 285(H) <150 mg/dL [facility] Comment: If a non-fasting specimen was collected, consider repeat triglyceride testing on a fasting specimen if clinically indicated. Diomedes et al. J. of Clin. Lipidol. 2015;9:129-169. LDL-CHOLESTEROL 127(H) mg/dL (calc) [facility] Comment: Reference range: <100 Desirable range <100 mg/dL for primary prevention; ?? <70 mg/dL for patients with CHD or diabetic patients with > or = 2 CHD risk factors. LDL-C is now calculated using the Alo-Blount calculation, which is a validated novel method providing better accuracy than the Friedewald equation in the estimation of LDL-C. Alo SS et al. HEAVEN. 2013;310(19): 1051-8708 (http://education.Epoq/faq/NKN449) CHOL/HDLC RATIO 3.7 <5.0 (calc) [facility] NON HDL CHOLESTEROL 171(H) <130 mg/dL (calc) [facility] Comment: For patients with diabetes plus 1 major ASCVD risk factor, treating to a non-HDL-C goal of <100 mg/dL (LDL-C of <70 mg/dL) is considered a therapeutic option. Blood BLOOD SPECIMEN / Unknown 02/17/2024 11:53 AM CDT 02/17/2024 11:53 AM CDT Zhanna [address] [facility] [address] [place] [address], [facility] [address] [facility] [place] [address] * (ABNORMAL) BASIC METABOLIC PANEL (02/17/2024 11:53 AM CDT) GLUCOSE 88 65 - 99 mg/dL [facility] Comment: ? Fasting reference interval UREA NITROGEN [...] CALCIUM 9.2 8.6 - 10.4 mg/dL [facility] Blood BLOOD SPECIMEN / Unknown 02/17/2024 11:53 AM CDT 02/17/2024 11:53 AM CDT Zhanna [address] [facility] [address] [place] [address], [facility] [address] [place] [address] * XR MAMMO BILAT SCREENING (03/29/2023 9:35 AM SALESPERSON NECKTIES) Anatomical Region Laterality Modality BREASTS, Breast Left, Breast Right Bilateral Mammography Impressions 03/29/2023 3:43 PM SALESPERSON NECKTIES ??There is no radiographic evidence for malignancy. ??Recommend annual mammograms. MAMMOGRAM ASSESSMENT: ??ACR 1 Negative PATIENTS: You will also receive a letter with your examination results in an easy to read format. ??If you have questions about your results, please contact your referring provider. Narrative 03/29/2023 3:43 PM SALESPERSON NECKTIES For Patients: As a result of the Century Cures Act, medical imaging exams and procedure reports are released immediately into your electronic medical record. You may view this report before your referring provider. If you have questions, please contact your health care provider. XR MAMMO BILAT SCREENING [[id number]] CLINICAL HISTORY: ??This is an asymptomatic 67 y.o. patient. INDICATION FOR EXAM: Mammogram Screening. TECHNIQUE: CC & MLO views were obtained. ??This study was evaluated with the assistance of Computer-Aided Detection. COMPARISON FILM: Yes 05/19/21 [employer] 08/14/18 [employer] FINDINGS: ??The breasts are heterogeneously dense, which may obscure small masses. There are no dominant masses, suspicious micro calcifications or areas of architectural distortion. Zhanna CALVERT MAMMO * (ABNORMAL) XR DXA BONE DENSITY 2 SITES AXIAL [51663.1] (12/14/2021 9:50 AM CDT) Anatomical Region Laterality [...] recommended in 3-5 years. Zhanna Romano PA-C [facility] 12/16/2021 Narrative 12/16/2021 4:39 PM CDT For Patients: Results are automatically released to your [employer] ([email or web address]) account once available, in compliance with federal regulations. This means that you may see your results before your provider has had a chance to review them. Please allow 2-3 business days for your provider to comment on the results. XR DXA Bone Mineral Density (BMD) EXAM LOCATION: [facility] [address] [facility] [address] PATIENT NAME: Shamika Kimble DATE OF : [...] two scanners are made by the same senior education specialist. PROCEDURE: Dual-energy x-ray absorptiometry performed with routine [...] , Melissa Aguayo, RN(Nurse) Referring MD: Zhanna Romnao Indications/Pre-Op Diagnosis: High risk colon cancer surveillance:Personal [...] adequate candidate for conscious sedation. The [id number] was passed through the anus and advanced [...] there are any questions, please contact the market research senior project manager. Moderate Sedation: Moderate (conscious) sedation was administered [...] 8:36 AM Procedure Code(s): --- Professional --- 77921, Colonoscopy, flexible; diagnostic, including collection of specimen(s) bybrushing or washing, when performed (separateprocedure) Diagnosis Code(s): --- Professional --- Z86.010, Personal history of colonicpolyps CPT copyright 2020 [employer]. All rights reserved. The codes documented in this report are preliminary and upon ladies attendant reviewmay be revised to meet current compliance requirements. Scope In: 8:49:06 AM Scope Withdrawal Time 0 hours 7 minutes 5 seconds Scope Out: 9:03:31 AM Alo Carrasco MD PROCEDURE ORD * ANTI HCV (08/13/2020 8:20 AM CDT) HEPATITIS C ANTIBODY Non-React za Non-React za 08/13/2020 3:00 PM CDT [facility] Comment:Antibodies to HCV no t detected; does not exclude the possibility of exposure to HCV. Blood BLOOD SPECIMEN / Unknown Venipuncture / Unknown 08/13/2020 8:20 AM CDT 08/13/2020 9:06 AM CDT Zhanna CALVERT SEND OUTS [facility] [address] [place] [address], [place] from Last 3 Months or Most Recently [...] Code Status Discussion: Not Discussed Care Teams Community Service Specialist Relationship Specialty Start Date End Date Zhanna Romano PA [address] [place] [address] PCP - General Physician Professor Of Theology 02/23/19 Esther Gibbons MD Oncology - Gynecologic 03/09/16
--- NOTE | 2024-03-31 13:00 | ED.NURSE ---
Pt transferred over to OR.
--- NOTE | 2024-03-31 14:04 | P.ANES_ITS ---
Anesthesia Charges Start Date/Time Anesthesia Start Date: 03/31/24 Anesthesia Start Time: 12:51 Stop Date/Time Anesthesia Stop Date: 03/31/24 Anesthesia Stop Time: 13:46 Summary Emergency: [employer]
== END 2024-03-31 12:46 | disposition short-term general hospital (02) ==
LOC: ED 12:37 → OR 04-04 12:57 → ED 11-20 12:42
PROVIDERS: Otolaryngology; Emergency Provider Internal Medicine; PCP Internal Medicine
PROC: (CPT 31500; principal; 2024-03-31 13:00)
DX: T81.89XA Other complications of procedures, not elsewhere classified, initial encounter (principal); R22.0 Localized swelling, mass and lump, head; R13.10 Dysphagia, unspecified; J98.8 Other specified respiratory disorders
CPT/HCPCS: 31500; 70491; 82565; 99140; 99284; 99285; 99291; J0330; J1100; J2250; J2543; J2704; J3010; Q9967

== ENCOUNTER 2024-03-31 13:17 | Outpatient (CLI) | payer MEDICARE, BC, SELFPAY ==
--- OUTSIDE RECORDS SUMMARY | 2024-04-14 01:09 | XMS_ITS | Clinical Summary ---
Author Organization [employer] [facility] Address [place], [place] [address] Care Team Providers Care Barrel Cooper Name Role Phone Esther Gibbons MD Unavailable [phone] Zhanna Romano Primary Care Provider Allergies Active Allergy Reactions Criticality Noted Date Comments Cats (Fur, Dander, Saliva) Other - Describe In Comment Field 09/24/2014 Dry eyes Medications Medication Sig Dispensed Refills Start Date End Date Status FA/MV,CA,IRON,M IN/LYCOPENE/LUT (MULTIVITAL ORAL) Take 1 Tab by mouth once daily. Active zolpidem (AMBIEN) 5 mg tabletIndicatio ns:Other insomnia Take 1 Tablet (5 mg) by mouth at bedtime if needed for Sleep. 30 Tablet 11/07/2023 Active pregabalin (LYRICA) 100 mg capsuleIndicati ons:Lumbar disc herniation,Event Marketing Specialist titus bilateral low back pain with right-sided sciatica Take 1 Capsule (100 mg) by mouth two times daily. 180 Capsule 3 02/17/2024 Active estradioL (ESTRACE) 0.01% (0.1 mg/g) vaginal creamIndication s:Postmenopausa l INSERT 2 GRAMS VAGINALLY THREE TIMES PER WEEK 85 g 1 02/17/2024 Active tiZANidine (ZANAFLEX) 4 mg tabletIndicatio ns:Lumbar disc herniation,Event Marketing Specialist titus bilateral low back pain with right-sided sciatica TAKE 1 TABLET(4 MG) BY MOUTH EVERY 8 HOURS NEEDED FOR MUSCLE SPASM 60 Tablet 1 04/02/2024 Active amoxicillin-cla vulanate (AUGMENTIN) 875-125 mg tabletIndicatio ns:Lymphadeniti s Take 1 Tablet by mouth two times daily with meals. 14 Tablet 04/03/2024 Active metroNIDAZOLE (FLAGYL) 500 mg tablet Take 500 mg by mouth three times daily. 04/03/2024 Active Cholecalciferol , Vitamin D3, (VITAMIN D-3) 5,000 unit tab Take 5,000 Units by mouth once daily. 03/31/20 Discontinued(Pha rmacist change per medication history (E-cancel not sent)) tiZANidine (ZANAFLEX) 4 mg tabletIndicatio ns:Lumbar disc herniation,Event Marketing Specialist titus bilateral low back pain with right-sided sciatica Take 1 Tablet (4 mg) by mouth every 8 hours if needed for Muscle Spasm. 60 Tablet 1 02/17/2024 04/02/20 Discontinued methocarbamoL (ROBAXIN) 500 mg tabletIndicatio ns:Lumbar disc herniation Take 1 Tablet (500 mg) by mouth every 8 hours if needed (muscle pain and spasm). 25 Tablet 02/24/2024 03/31/20 Discontinued(Pha rmacist change per medication history (E-cancel not sent)) amoxicillin 875 mg tablet Take 875 mg by mouth two times daily. 03/29/2024 04/03/20 Discontinued(*IP Discontinued) amoxicillin-cla vulanate (AUGMENTIN) 875-125 mg tabletIndicatio ns:Lymphadeniti s Take 1 Tablet by mouth two times daily with meals for 7 days. 14 Tablet 04/03/2024 04/03/20 Discontinued dexAMETHasone 6 mg tabletIndicatio ns:Lymphadeniti s Take 1 Tablet (6 mg) by mouth once daily with a meal for 2 days. 2 Tablet 04/03/2024 04/03/20 Discontinued dexAMETHasone 6 mg tabletIndicatio ns:Lymphadeniti s Take 1 Tablet (6 mg) by mouth once daily with a meal. 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 Ovarian mass 09/18/2014 Adnexal mass 09/16/2014 Colon polyp 09/16/2009 Overview (03/18/2016): Colonoscopy 09/2009 polyp repeat in 5 years Colonoscopy 03/2016 polyp repeat in 5 years Unspecified asthma(493.90) 04/12/2007 Allergic rhinitis, cause unspecified 04/12/2007 Resolved Problems Problem Noted Date Diagnosed Date Resolved Date Postmenopausal bleeding 09/16/2014 0710/2021 Encounters Date Type Department Care Team Description 04/09/2024 10:10 AM AWNING HANGER Office Visit [facility] [address] [place] [address] Zhanna Romano PA Hospital F/U (Post hospital - ) 04/09/2024 Travel 04/04/2024 Telephone [facility] [address] [place] [address] Zhanna Romano PA Follow Up (POST HOSPITAL VISIT) 04/04/2024 Patient Outreach [facility] [address] [place] [address] Junie Butler, RN Primary RN Care Management; Hospital F/U (LACE 19) 03/31/2024 2:43 PM AWNING HANGER - 04/03/2024 12:44 PM AWNING HANGER Hospital Encounter [facility] [address] [place] [address] Erasto Perkins, Anais Hernandez MBBS Melamed, Roman, MD [facility], [facility] Grace Sanchez MD Lymphadenitis (Primary Dx) Discharge Disposition: Home Self Care 03/31/2024 Orders Only [facility] Scanner 1 scan: (1-Ord) [facility], SOFT TISSUE NECK W/CON, 03/31/2024 03/30/2024 Refill [facility] [address] [place] [address] Zhanna Romano PA Refill Request (Tizanidine) 03/19/2024 12:30 PM AWNING HANGER Procedure Only [facility] [address] [place] [address] Erin Dyson L Ac Acupuncture 03/19/2024 Travel 03/08/2024 11:30 AM CDT Procedure Only [facility] [address] [place] [address] Erin Dyson L Ac Acupuncture 03/08/2024 Travel 03/01/2024 11:30 AM CDT Procedure Only [facility] [address] [place] [address] Erin Dyson L Ac Acupuncture 03/01/2024 Travel 02/24/2024 12:00 PM CDT Procedure Only [facility] [address] [place] [address] Erin Dyson L Ac Acupuncture 02/23/2024 Travel 02/17/2024 10:30 AM CDT Office Visit [facility] [address] [place] [address] Zhanna Romano PA Medicare ANNUAL (subsequent) Visit [...] Paternal Grandfather alcohol Heart Disease Paternal Grandfather MD 50' s Good Health Sister Cancer-breast No [...] Sign Reading Time Taken Comments Blood Pressure 121/79 04/09/2024 10:17 AM AWNING HANGER Pulse 62 04/09/2024 10:17 AM AWNING HANGER Temperature 36.7 C (98 F) 04/09/2024 10:17 AM AWNING HANGER Respiratory Rate 18 04/03/2024 1:00 AM AWNING HANGER Oxygen Saturation 100% 04/09/2024 10: 17 AM AWNING HANGER Inhaled Oxygen Concentration - - Weight 59.4 kg (130 lb 14.4 oz) 024 10:17 AM AWNING HANGER Height 163.8 cm (5' 4.5) 02/17/2024 10 :45 AM CDT Body Mass Index 22.12 02/17/2024 10:45 AM CDT Plan of Treatment Health Maintenance Due Date Last Done Comments [...] Procedure Name Priority Date/Time Associated Diagnosis Comments POTASSIUM Early AM 04/03/2024 5:52 AM AWNING HANGER MAGNESIUM Early AM 04/03/2024 5:52 AM AWNING HANGER GLUCOSE METER Timed 04/03/2024 4:25 AM AWNING HANGER GLUCOSE METER Timed 04/02/2024 9:38 PM AWNING HANGER SCAN CORRESP-IMAGING 04/02/2024 1:55 PM AWNING HANGER GLUCOSE METER Timed 04/02/2024 6:09 AM AWNING HANGER POTASSIUM Early AM 04/02/2024 3:38 AM AWNING HANGER MAGNESIUM Early AM 04/02/2024 3:38 AM AWNING HANGER CALCIUM IONIZED HOSPITAL DRAW ONLY Timed 04/02/2024 3:37 AM AWNING HANGER GLUCOSE METER Timed 04/02/2024 12:28 AM AWNING HANGER SCAN-CARDIAC STRIP 04/01/2024 11 :41 PM AWNING HANGER GLUCOSE METER Timed 04/01/2024 8:28 PM AWNING HANGER SCAN-CARDIAC STRIP 04/01/2024 5: 08 PM AWNING HANGER CALCIUM IONIZED HOSPITAL DRAW ONLY Timed 04/01/2024 3:31 PM AWNING HANGER MAGNESIUM Timed 04/01/2024 3:31 PM AWNING HANGER POTASSIUM Timed 04/01/2024 3:31 PM AWNING HANGER GLUCOSE METER Timed 04/01/2024 2:[address] NECK SOFT TISSUE W ASHLEY 04/01/2024 9:41 AM AWNING HANGER GLUCOSE METER Timed 04/01/2024 9:01 AM AWNING HANGER CBC W PLT NO DIFF ASHLEY 04/01/2024 7:1 1 AM AWNING HANGER BASIC METABOLIC PANEL ASHLEY 04/01/2024 4:37 AM AWNING HANGER CK TOTAL Timed 04/01/2024 4:37 AM AWNING HANGER TRIGLYCERIDES Timed 04/01/2024 4:37 AM AWNING HANGER GLUCOSE METER Timed 04/01/2024 3:49 AM AWNING HANGER GLUCOSE METER Timed 03/31/2024 10:18 PM AWNING HANGER SCAN-CARDIAC STRIP 03/31/2024 8: 11 PM AWNING HANGER XR CHEST 1 VIEW PORTABLE ASHLEY 03/31/2024 4:07 PM AWNING HANGER CBC WITH AUTO DIFFERENTIAL STAT 03/31/2024 3:33 PM AWNING HANGER HEPATIC FUNCTION PANEL STAT 3:33 PM AWNING HANGER PROTIME-INR STAT 03/31/2024 3:33 PM AWNING HANGER CBC WITH AUTO DIFFERENTIAL STAT 03/31/2024 3:33 PM AWNING HANGER BASIC METABOLIC PANEL STAT 03/31/2024 3:33 PM AWNING HANGER GLUCOSE METER Timed 03/31/2024 3:10 PM AWNING HANGER XR CHEST 1 VIEW PORTABLE STAT 03/31/2024 3:04 PM AWNING HANGER SCAN-CT INTERPRETATION 12:00 AM AWNING HANGER ACUPUNCTURE PLAN OF CARE Routine 03/19/2024 12:29 PM AWNING HANGER Chronic bilateral low back pain with right-sided [...] MAMMO BILAT SCREENING Routine 03/29/2023 9:35 AM AWNING HANGER Visit for screening mammogram XR DXA BONE DENSITY 2 SITES AXIAL Routine 12/14/2021 9:50 AM CDT Menopause Osteopenia, unspecified location COLONOSCOPY SCREENING Routine 08/25/2021 7:53 AM CDT History of colon polyps ANTI HCV Routine 08/13/2020 8:20 AM CDT Need for hepatitis C screening test from Last 3 Months or Most Recently Relevant to Health Maintenance Results * POTASSIUM (04/03/2024 5:52 AM AWNING HANGER) Only the most recent of3 resultswithin the time period is included. POTASSIUM 3.5 3.5 - 5.1 mmol/L 04/03/2024 6:27 AM AWNING HANGER [facility] Blood BLOOD SPECIMEN / Unknown Butterfly / Unknown 04/03/2024 5:52 AM AWNING HANGER 04/03/2024 6:00 AM AWNING HANGER [facility] Performing Organization Address [facility] Co de Phone Number [facility] [address] [place] [id number], [place] * MAGNESIUM (04/03/2024 5:52 AM AWNING HANGER) Only the most recent of3 resultswithin the time period is included. MAGNESIUM 2.0 1.6 - 2.4 mg/dL 04/03/2024 6:27 AM AWNING HANGER [facility] Blood BLOOD SPECIMEN / Unknown Butterfly / Unknown 04/03/2024 5:52 AM AWNING HANGER 04/03/2024 6:00 AM AWNING HANGER [facility] CHEMISTRY Performing Organization Address [facility] Co de Phone Number [facility] [address] [address], [place] * GLUCOSE METER (04/03/2024 4:25 AM AWNING HANGER) Only the most recent of10 resultswithin the time period is included. GLUCOSE METER 98 65 - 100 mg/dL 04/03/2024 4:31 AM AWNING HANGER [facility] Blood BLOOD SPECIMEN / Unknown 04/03/2024 4:25 AM AWNING HANGER 04/03/2024 4:31 AM AWNING HANGER [facility] CHEMISTRY Performing Organization Address [facility] Co de Phone Number [facility] [address] [address], [place] * SCAN CORRESP-IMAGING (04/02/2024 1:55 PM AWNING HANGER) Anatomical Region Laterality Modality Other Narrative 04/02/2024 1:55 PM AWNING HANGER Ordered by an unspecified provider. Other Clinical Staff OTHER * (ABNORMAL) CALCIUM IONIZED HOSPITAL DRAW ONLY (04/02/2024 3:37 AM AWNING HANGER) Only the most recent of2 resultswithin the time period is included. CALCIUM,IONIZE D 1.02(L) 1.15 - 1.27 mmol/L 04/02/2024 3:48 AM AWNING HANGER [facility] Blood BLOOD SPECIMEN / Unknown Venipuncture / Unknown 04/02/2024 3:37 AM AWNING HANGER 04/02/2024 3:44 AM AWNING HANGER Anais WEAVER CHEMISTRY [facility] [address] [place] [address], * SCAN-CARDIAC STRIP (04/01/2024 11:41 PM AWNING HANGER) Scanner OTHER * SCAN-CARDIAC STRIP (04/01/2024 5:08 PM AWNING HANGER) Scanner OTHER * CT NECK SOFT TISSUE W (04/01/2024 9:41 AM AWNING HANGER) Anatomical Region Laterality Modality NECK Computed Tomogra phy 04/01/2024 10:4 0 AM AWNING HANGER Impressions 04/01/2024 10:40 AM AWNING HANGER 1. Mild fat stranding and prominent lymph nodes within the left submandibular space, most likely related to the dental procedure although mild cellulitis/infection not excluded. No organized fluid collections. Nasopharyngeal/oropharyngeal submucosal edema, which is indeterminate and may be reactive/postoperative in nature. Appropriately positioned endotracheal tube is noted. Please note that all CT scans at this facility use dose modulation, iterative reconstruction, and/or weight-based dosing when appropriate to reduce radiation dose to as low as reasonably achievable. Dictated by Rolo Hunter MD @ 04/01/2024 10:40:17 AM (Electronically Signed) Narrative 04/01/2024 10:40 AM AWNING HANGER For Patients: As a result of the Cures Act, medical imaging exams and procedure reports are released immediately into your electronic medical record. You may view this report before your referring provider. If you have questions, please contact your health care provider. INDICATION: Neck swelling after dental procedure. TECHNIQUE: CT of the neck with 90 cc Omnipaque 350 iodinated contrast agent. COMPARISON: None. FINDINGS: Nasopharynx/oropharynx: Mild submucosal edema. Pooled secretions along the margins of the enteric tube within the pharyngeal airway. Oral cavity: Within normal limits. Supraglottic, glottic and infraglottic larynx: Within normal limits. Hypopharynx: Within normal limits. Airway including the trachea: An endotracheal tube with tip terminating appropriately within the midthoracic trachea. Salivary glands and thyroid gland: Mild thyroid gland nodularity. Salivary glands otherwise within normal limits. Lymph nodes and other cervical soft tissues: Inflammatory fat stranding left submandibular space, with asymmetrically prominent lymph node. Mild thickening along the left-sided platysma muscle. Vascular Structures: Within normal limits. Osseous structures: Mild degenerative cervical kyphosis. Grade 1 anterolisthesis C3-4 and C4-5. Trace retrolisthesis C5-6. Multilevel uncovertebral/facet arthrosis with moderate neural foraminal stenosis at C3-4 bilaterally, and low-grade elsewhere. Paranasal sinuses and mastoid air cells: Within normal limits. Teeth: Within normal limits. Imaged orbits and intracranial contents: Within normal limits. Imaged chest wall, mediastinum and upper lungs: Within normal limits. Procedure Note Rolo Hunter MD - 04/01/2024 For Patients: As a result of the Cures Act, medical imagingexams and procedure reports are released immediately into your electronicmedical record. You may view this report before your referring provider.If you have questions, please contact your health care provider. INDICATION: Neck swelling after dental procedure. TECHNIQUE: CT of the neck with 90 cc Omnipaque 350 iodinated contrast agent. COMPARISON: None. FINDINGS: Nasopharynx/oropharynx: Mild submucosal edema. Pooled secretions along themargins of the enteric tube within the pharyngeal airway. Oral cavity: Within normal limits. Supraglottic, glottic and infraglottic larynx: Within normal limits. Hypopharynx: Within normal limits. Airway including the trachea: An endotracheal tube with tip terminatingappropriately within the midthoracic trachea. Salivary glands and thyroid gland: Mild thyroid gland nodularity. Salivaryglands otherwise within normal limits. Lymph nodes and other cervical soft tissues: Inflammatory fat strandingleft submandibular space, with asymmetrically prominent lymph node. Mildthickening along the left-sided platysma muscle. Vascular Structures: Within normal limits. Osseous structures: Mild degenerative cervical kyphosis. Grade 1anterolisthesis C3-4 and C4-5. Trace retrolisthesis C5-6. Multileveluncovertebral/facet arthrosis with moderate neural foraminal stenosis atC3-4 bilaterally, and low-grade elsewhere. Paranasal sinuses and mastoid air cells: Within normal limits. Teeth: Within normal limits. Imaged orbits and intracranial contents: Within normal limits. Imaged chest wall, mediastinum and upper lungs: Within normal limits. IMPRESSION: 1. Mild fat stranding and prominent lymph nodes within the leftsubmandibular space, most likely related to the dental procedure althoughmild cellulitis/infection not excluded. No organized fluid collections.Nasopharyngeal/oropharyngeal submucosal edema, which is indeterminate andmay be reactive/postoperative in nature. Appropriately positionedendotracheal tube is noted. Please note that all CT scans at this facility use dose modulation,iterative reconstruction, and/or weight-based dosing when appropriate toreduce radiation dose to as low as reasonably achievable. Dictated by Rolo Hunter MD @ 04/01/2024 10:40:17 AM (Electronically Signed) Anais Wong [facility] * (ABNORMAL) CBC (04/01/2024 7:11 AM AWNING HANGER) WHITE BLOOD COUNT 13.2(H) 4.5 - 11.0 thou/cu mm 04/01/2024 7:21 AM AWNING HANGER [facility] RED BLOOD COUNT 4.21 4.00 - 5.20 mil/cu mm 04/01/2024 7:21 AM [facility] HEMOGLOBIN 12.9 12.0 - 16.0 g/dL 04/01/2024 7:21 AM [facility] HEMATOCRIT 38.2 33.0 - 51.0 % 04/01/2024 7:21 AM [facility] MCV 91 80 - 100 fL 04/01/2024 7:21 AM [facility] MCH 30.6 26.0 - 34.0 pg 04/01/2024 7:21 AM [facility] MCHC 33.8 32.0 - 36.0 g/dL 04/01/2024 7:21 AM [facility] RDW 12.8 11.5 - 15.5 % 04/01/2024 7:21 AM [facility] PLATELET COUNT 214 140 - 440 thou/cu mm 04/01/2024 7:21 AM [facility] MPV 9.9 6.5 - 11.0 fL 04/01/2024 7:21 AM [facility] NRBC 0.0 % 04/01/2024 7:21 AM [facility] ABS NRBC 0.0 thou /cu mm 04/01/2024 7:21 AM [facility] Blood BLOOD SPECIMEN / Unknown Butterfly / Unknown 04/01/2024 7:11 AM AWNING HANGER 04/01/2024 7:16 AM AWNING HANGER Erasto Perkins DO HEMATOLOGY Performing Organization Address City/[facility]/ZIP Co de Phone Number [facility] [address] [place] [address], [place] * TRIGLYCERIDES propofol (04/01/2024 4:37 AM AWNING HANGER) TRIGLYCERIDES 130 <150 mg/dL 04/01/2024 5:06 AM AWNING HANGER [facility] PROVIDER ORDERED STATUS RANDOM 04/01/2024 5:06 AM [facility] Blood BLOOD SPECIMEN / Unknown Butterfly / Unknown 04/01/2024 4:37 AM AWNING HANGER 04/01/2024 4:42 AM AWNING HANGER Erasto Perkins DO CHEMISTRY [facility] [address] [place] [address], [place] * CK TOTAL propofol (04/01/2024 4:37 AM AWNING HANGER) CK,TOTAL 44 26 - 192 IU/L 04/01/2024 5:06 AM [facility] Blood BLOOD SPECIMEN / Unknown Butterfly / Unknown 04/01/2024 4:37 AM AWNING HANGER 04/01/2024 4:42 AM AWNING HANGER Erasto Perkins DO CHEMISTRY [facility] [address] [place] [address], * (ABNORMAL) BASIC METABOLIC PANEL (04/01/2024 4:37 AM AWNING HANGER) Only the most recent of3 resultswithin the time period is included. SODIUM 137 136 - 145 mmol/L 04/01/2024 5:52 AM [facility] POTASSIUM 4.3 3.5 - 5.1 mmol/L 04/01/2024 5:52 AM [facility] CHLORIDE 105 98 - 107 mmol/L 04/01/2024 5:52 AM [facility] CO2,TOTAL 19(L) 22 - 29 mmol/L 04/01/2024 5:52 AM [facility] ANION GAP 13 5 - 18 04/01/2024 5:52 AM [facility] GLUCOSE 177(H) 70 - 99 mg/dL 04/01/2024 5:52 AM [facility] CALCIUM 9.0 8.8 - 10.4 mg/dL 04/01/2024 5:52 AM [facility] Comment: Reference ranges for this test were updated on 03/20/2024 to reflect our healthy population more accurately. Reference range changes are not retroactively applied to results, but previous results using the same methodology can be interpreted in the context of the new reference range. BUN 19 8 - 23 mg/dL 04/01/2024 5:52 AM [facility] CREATININE 0.73 0.50 - 0.90 mg/dL 04/01/2024 5:52 AM [facility] BUN/CREAT RATIO 26(H) 10 - 20 5:52 AM [facility] eGFR 90(L) >90 mL/min/1. 73m2 04/01/2024 5:52 AM AWNING HANGER [facility] Comment:As of 2021, eG FR is calculated by the CKD-EPI creatinine equation without race adjustment. eGFR can be influenced by muscle mass, exercise, and diet. The reported eGFR is an estimation only and is only applicable if the renal function is stable. Blood BLOOD SPECIMEN / Unknown Butterfly / Unknown 04/01/2024 4:37 AM AWNING HANGER 04/01/2024 4:42 AM AWNING HANGER Erasto Perkins DO [facility] [address] [place] [address], * SCAN-CARDIAC STRIP (03/31/2024 8:11 PM AWNING HANGER) Scanner OTHER * XR CHEST 1 VIEW PORTABLE (03/31/2024 4:07 PM AWNING HANGER) Only the most recent of2 resultswithin the time period is included. Anatomical Region Laterality Modality HEART, THORAX, CHEST Digital Rad iography Narrative 03/31/2024 4:12 PM AWNING HANGER Indication: Assess ET tube placement. Comparison: 28 April 2015. Technique: 1 view. Impression: ET tube just over 2 cm above the yaya. No acute cardiopulmonary disease. No bone finding of significance. Shannon Lopez MD GENERAL IMAGING * (ABNORMAL) CBC WITH AUTO DIFFERENTIAL (03/31/2024 3:33 PM AWNING HANGER) WHITE BLOOD COUNT 11.7(H) 4.5 - 11.0 thou/cu mm 03/31/2024 3:46 PM AWNING HANGER [facility] RED BLOOD COUNT 4.16 4.00 - 5.20 mil/cu mm 03/31/2024 3:46 PM AWNING HANGER [facility] HEMOGLOBIN 12.5 12.0 - 16.0 g/dL 03/31/2024 3:46 PM [facility] HEMATOCRIT 37.1 33.0 - 51.0 % 03/31/2024 3:46 PM [facility] MCV 89 80 - 100 fL 03/31/2024 3:46 PM [facility] MCH 30.0 26.0 - 34.0 pg 03/31/2024 3:46 PM [facility] MCHC 33.7 32.0 - 36.0 g/dL 03/31/2024 3:46 PM [facility] RDW 12.6 11.5 - 15.5 % 03/31/2024 3:46 PM [facility] PLATELET COUNT 189 140 - 440 thou/cu mm 03/31/2024 3:46 PM [facility] MPV 9.8 6.5 - 11.0 fL 03/31/2024 3:46 PM [facility] NRBC 0.0 % 03/31/2024 3:46 PM [facility] ABS NRBC 0.0 thou /cu mm 03/31/2024 3:46 PM [facility] % NEUT 94.6 % 03/31/2024 3:46 PM [facility] % LYMPH 3.5 % 03/31/2024 3:46 PM [facility] % MONO 1.4 % 03/31/2024 3:46 PM [facility] % EOS 0.0 % 03/31/2024 3:46 PM [facility] % BASO 0.1 % 03/31/2024 3:46 PM [facility] % IMMATURE GRAN (METAS,MYELOS,AL OS) 0.4 % 03/31/2024 3:46 PM [facility] ABSOLUTE NEUTROPHILS 11.1(H) 1.7 - 7.0 thou/cu mm 03/31/2024 3:46 PM [facility] ABSOLUTE LYMPHOCYTES 0.4(L) 0.9 - 2.9 thou/cu mm 03/31/2024 3:46 PM AWNING HANGER [facility] ABSOLUTE MONOCYTES 0.2 <0.9 thou/cu mm 03/31/2024 3:46 PM AWNING HANGER [facility] ABSOLUTE EOSINOPHILS 0.0 <0.5 thou/cu mm 03/31/2024 3:46 PM AWNING HANGER [facility] ABSOLUTE BASOPHILS 0.0 <0.3 thou/cu mm 03/31/2024 3:46 PM AWNING HANGER [facility] ABSOLUTE IMMATURE GRANULOCYTES(MET ,MYELOS,PROS) 0.1 <0.3 thou/cu mm 03/31/2024 3:46 PM AWNING HANGER [facility] Blood BLOOD SPECIMEN / Unknown Butterfly / Unknown 03/31/2024 3:33 PM AWNING HANGER 03/31/2024 3:39 PM AWNING HANGER Erasto Perkins DO HEMATOLOGY [facility] [address] [place] [address], * (ABNORMAL) Protime - INR (03/31/2024 3:33 PM AWNING HANGER) INR 1.5(H) <1.3 03/31/2024 4:02 PM AWNING HANGER [facility] PROTIME 17.3(H) 10.6 - 12.4 sec 03/31/2024 4:02 PM AWNING HANGER [facility] Blood BLOOD SPECIMEN / Unknown Butterfly / Unknown 03/31/2024 3:33 PM AWNING HANGER 03/31/2024 3:39 [address] [facility] - 03/31/2024 4:02 PM AWNING HANGER Therapeutic Range 2.0-3.0 for most anticoagulated patients 2.5-3.5 or 4.0 for high risk patients The INR is only used for patients on stable oral anticoagulant therapy. It makes no significant contribution to the diagnosis or treatment of patients whose Protime is prolonged for other reasons. INR results are increased when heparin levels exceed 1.0 U/mL, which corresponds to an aPTT >125 seconds if the patient is on UFH. Erasto Perkins DO HEMATOLOGY Performing Organization Address City/[facility]/ZIP Co de Phone Number [facility] [address] [address], [place] * (ABNORMAL) Hepatic Function Panel (03/31/2024 3:33 PM AWNING HANGER) ALBUMIN 3.7(L) 4.0 - 4.9 g/dL 03/31/2024 4:23 PM AWNING HANGER [facility] PROTEIN,TOTAL 6.3 6.0 - 8.0 g/dL 03/31/2024 4:23 PM AWNING HANGER [facility] BILIRUBIN,TOTAL 0.4 0.0 - 1.2 mg/dL 03/31/2024 4:23 PM AWNING HANGER [facility] BILIRUBIN,DIRECT 0.2 0.0 - 0.2 mg/dL 03/31/2024 4:23 PM AWNING HANGER [facility] BILIRUBIN,INDIRE CT 0.2 0.2 - 0.8 mg/dL 03/31/2024 4:23 PM AWNING HANGER [facility] ALK PHOSPHATASE 69 35 - 104 IU/L 03/31/2024 4:23 PM AWNING HANGER [facility] ALT (SGPT) 16 10 - 35 IU/L 03/31/2024 4:23 PM AWNING HANGER [facility] AST (SGOT) 23 10 - 35 IU/L 03/31/2024 4:23 PM AWNING HANGER [facility] Blood BLOOD SPECIMEN / Unknown Butterfly / Unknown 03/31/2024 3:33 PM AWNING HANGER 03/31/2024 3:39 PM AWNING HANGER Erasto Perkins DO CHEMISTRY Performing Organization Address [facility]/ZIP Co de Phone Number [facility] [address] [place] [address], [place] * SCAN-CT INTERPRETATION (03/31/2024 12:00 AM AWNING HANGER) Anatomical Region Laterality Modality Other Scanner OTHER * (ABNORMAL) LIPID PANEL W REFLEX MEASURED LDL (02/17/2024 11:53 AM CDT) CHOLESTEROL, TOTAL 234(H) <200 mg/dL [facility] HDL CHOLESTEROL 63 > OR = 50 mg/dL [facility] TRIGLYCERIDES 285(H) <150 mg/dL [facility] Comment: If a non-fasting specimen was collected, consider repeat triglyceride testing on a fasting specimen if clinically indicated. Diomedes et al. J. of Clin. Lipidol. 2015;9:129-169. LDL-CHOLESTEROL 127(H) mg/dL (calc) [facility] Comment: Reference range: <100 Desirable range <100 mg/dL for primary prevention; <70 mg/dL for patients with CHD or diabetic patients with > or = 2 CHD risk factors. LDL-C is now calculated using the Alo-Jose Alejandro calculation, which is a validated novel method providing better accuracy than the Friedewald equation in the estimation of LDL-C. Alo SS et al. HEAVEN. 2013;310(19): 0356-0127 (http://education.[employer]/faq/AKM814) CHOL/HDLC RATIO 3.7 <5.0 (calc) [facility] NON HDL CHOLESTEROL 171(H) <130 mg/dL (calc) [facility] Comment: For patients with diabetes plus 1 major ASCVD risk factor, treating to a non-HDL-C goal of <100 mg/dL (LDL-C of <70 mg/dL) is considered a therapeutic option. Blood BLOOD SPECIMEN / Unknown 02/17/2024 11:53 AM CDT 02/17/2024 11:53 AM CDT Zhanna CALVERT CHEMISTRY [employer] [facility] [address] [place] [address], [facility] [address] [place] [address] * XR MAMMO BILAT SCREENING (03/29/2023 9:35 AM AWNING HANGER) Anatomical Region Laterality Modality BREASTS, Breast Left, Breast Right Bilateral Mammography Impressions 03/29/2023 3:43 PM AWNING HANGER There is no radiographic evidence for malignancy. Recommend annual mammograms. MAMMOGRAM ASSESSMENT: ACR 1 Negative PATIENTS: You will also receive a letter with your examination results in an easy to read format. If you have questions about your results, please contact your referring provider. Narrative 03/29/2023 3:43 PM AWNING HANGER For Patients: As a result of the Century Cures Act, medical imaging exams and procedure reports are released immediately into your electronic medical record. You may view this report before your referring provider. If you have questions, please contact your health care provider. XR MAMMO BILAT SCREENING [[id number]] CLINICAL HISTORY: This is an asymptomatic 67 y.o. patient. INDICATION FOR EXAM: Mammogram Screening. TECHNIQUE: CC & MLO views were obtained. This study was evaluated with the assistance of Computer-Aided Detection. COMPARISON FILM: Yes 05/19/21 [employer] 08/14/18 [employer] FINDINGS: The breasts are heterogeneously dense, which may obscure small masses. There are no dominant masses, suspicious micro calcifications or areas of architectural distortion. Zhanna CALVERT MAMMO * (ABNORMAL) XR DXA BONE DENSITY 2 SITES AXIAL [21140.1] (12/14/2021 9:50 AM CDT) Anatomical Region Laterality [...] recommended in 3-5 years. Zhanna Romano PA-C [facility] 12/16/2021 Narrative 12/16/2021 4:39 PM CDT For Patients: Results are automatically released to your [facility] ([employer]) account once available, in compliance with federal regulations. This means that you may see your results before your provider has had a chance to review them. Please allow 2-3 business days for your provider to comment on the results. XR DXA Bone Mineral Density (BMD) EXAM LOCATION: [address] [address] PATIENT NAME: Shamika Kimble DATE OF : 1955 EXAM DATE: 12/14/2021 REQUESTING PROVIDER: Zhanna Romano PA GENDER AT : female HEIGHT: 5' 4.7 (12/08/2021) WEIGHT: 132 lb (12/08/2021) MENOPAUSAL STATUS: Postmenopausal RACE/ETHNICITY: White [...] two scanners are made by the same service representative. PROCEDURE: Dual-energy x-ray absorptiometry performed with routine [...] + 3.0 Change from prior in 2018: Decrease 2.1%. RESULTS FEMUR Left femoral neck BMD: 0.780 g/cm2 T-Score: - 1.9 Z-Score: - 0.3 Change from prior in 2018: Decrease 2.4%. Right femoral neck BMD: 0.792 g/cm2 T-Score: - 1.8 Z-Score: - 0.2 Change from prior in 2018: Decrease 6.9%. Left hip BMD: 0.805 g/cm2 T-Score: - 1.6 Z-Score: - 0.3 Change from prior in 2018: Decrease 3.0%. Right hip BMD: 0.812 g/cm2 T-Score: - 1.6 Z-Score: - 0.2 Change from prior in 2018: Decrease 5.6%. WHO criteria: Normal: T-score at or [...] - 08/25/2021 9:13 AM CDT Patient Name: hSamika Kimble Procedure Date: 08/25/2021 Gender: Female Date of : 1955 Admit Type: Outpatient Procedure: Colonoscopy Proceduralist: Alo Carrasco MD , Melissa Aguayo RN(Nurse) Referring MD: Zhanna Romano Indications/Pre-Op Diagnosis: [...] adequate candidate for conscious sedation. The [id number] was passed through the anus and advanced [...] there are any questions, please contact the end packer. Moderate Sedation: Moderate (conscious) sedation was administered [...] 8:36 AM Procedure Code(s): --- Professional --- 09364, Colonoscopy, flexible; diagnostic, including collection of specimen(s) bybrushing or washing, when performed (separateprocedure) Diagnosis Code(s): --- Professional --- Z86.010, Personal history of colonicpolyps CPT copyright 2020 [employer]. All rights reserved. The codes documented in this report are preliminary and upon poker in reviewmay be revised to meet current compliance requirements. Scope In: 8:49:06 AM Scope Withdrawal Time 0 hours 7 minutes 5 seconds Scope Out: 9:03:31 AM Alo Carrasco MD PROCEDURE ORD * ANTI HCV (08/13/2020 8:20 AM CDT) HEPATITIS C ANTIBODY Non-React za Non-React za 08/13/2020 3:00 PM CDT [facility] Comment:Antibodies to HCV no t detected; does not exclude the possibility of exposure to HCV. Blood BLOOD SPECIMEN / Unknown Venipuncture / Unknown 08/13/2020 8:20 AM CDT 08/13/2020 9:06 AM CDT Zhanna CALVERT [facility] OUT[facility] [address] [place] [address], from Last 3 Months or Most Recently Relevant to Health Maintenance Advance Directives * Full Code (Latest Code Status on File) Date Activated Date Inactivated Comments 03/31/2024 2:47 PM 04/03/2024 2:44 PM Question Answer Comments Code Status Discussion: Reviewed Preferences * Full Code Date Activated Date Inactivated Comments 12/26/2014 9:08 AM 12/26/2014 4:46 PM * Full Code Date Activated Date Inactivated Comments 12/26/2014 5:36 AM 12/26/2014 9:08 AM * Full Code Date Activated Date Inactivated Comments 09/26/2014 11:26 AM 09/26/2014 10:06 PM Question Answer Comments Code Status Discussion: Not Discussed Care Teams Barrel Cooper Relationship Specialty Start Date End Date Zhanna Romano PA [address] [place] [address] PCP - General Physician Industrial Trainer 02/23/19 Esther Gibbons MD Oncology - Gynecologic 03/09/16
--- OUTSIDE RECORDS SUMMARY | 2024-04-14 01:09 | XMS_ITS | Data Portability ---
Author Organization [place] - [facility], [facility] - OP Address [address] [place] [address] Care Team Providers Care Placing Judge Name Role Phone ANNA GARDNER Primary Care Provider [phone] Assessment Encounter Date Assessment Date Assessment LastModified by Organization Details LastModified Time 04/01/2023 04/01/2023 Assessment Chronic low back pain L4-L5 HNP Degenerative disc disease Plan: -Discussed the patient's physical exam and [...] By Organization Details Last Modified Time 04/01/2023 11062 Discussion: I discussed the clinical findings with the patient. All questions were answered. Risk factors reviewed with the patient and a L CHRISTI, LCT was ordered. Synopsis: 04/01/23, ROSE, JOIE: No Img: HNP, DDD, LBP: L [...] [degF] 97 % 97 % 21.8 kg/m2 83640.6 g Gavin Phill ramirez [employer] 3 12:22:55 Social History Question Answer Notes LastModified by [employer] ion Details LastModified Time Tobacco Smoking Status Never Smoker Gavin Roperjelena arroyo [employer] 04/01/2023 12:25:03 What Is Your Level Of [...] Condition Response Gout N Blood Diseases N Blood Transfusion N MRSA N Head Trauma/Injury N Hernia N COPD N Depression N Lung Disease N Developmental or Behavioral Disorders N Pacemaker N Difficulty Swallowing N Anesthesia Complications N Anxiety Disorder N Cystic Fibrosis N Muscle, Joint, or Bone Problems Y Obesity N Vision or Eye Problems N Arthritis Y Blood Clot N Stroke N Bladder or Kidney Problems N High Cholesterol N Fibromyalgia N Headaches N Allergies/Hayfever N Parkinson's Disease N Ear or Hearing Problems Y Hospitalizations N GI Problems N ADD/ADHD N Skin Problems N PTSD N Anemia N Multiple Sclerosis N Meningitis N Heart Attack (OR) N Diabetes N Immunocompromised N Hepatitis/Liver Disease N Bleeding Disorder N Cancer/Tumors Y Heart Murmur N Cerebral Palsy N AIDS/HIV N Congestive Heart Failure (CHF) N Abuse/Domestic Violence N Asthma N Seizures N Peripheral Vascular Disease N Epilepsy/Seizures N AFib N Reflux/GERD N Sleep Apnea N Thyroid Disorder N Aneurysm N Neuropathy N Pulmonary Embolism N Hypertension N Osteoporosis N Autism Spectrum Disorder (ASD) N Gynecological HistoryNo gynecological history recorded. Obstetrics History GPAL:G 0 P 0 0 0 0 Past Encounters Encounter ID Performer Location Encounter Start Date Encounter Closed Date Diagnosis/Indication Diagnosis SNOMED-CT Code Diagnosis ICD10 Code [id number] ABRAHAM STANTON PA-C [facility] [address] [place] [address] 04/01/2023 11:51:59 04/01/2023 15:28:37 Herniation of nucleus pulposus 33227884 M53.80 Degenerati on of lumbar intervertebral disc 04038565 M51.36 Health Concerns Section Related Observation LastModified by Organization Detai ls LastModified Time None Recorded Concern Status LastModified by Organization Details LastModified Time None Recorded Advance Directives Directive None Recorded Payers Encounter Date Sequence Insurance Name Policy Number Policy Gupta Covered Member ID Gupta Member ID Guarantor Name 04/01/2023 2 [place] [employer] [place] Lynn [id number] Shamika Kimble 04/01/2023 1 [place] [facility] Shamika Kimble [id number] Shamika Kimble Notes Date Note Type [...] STANTON PA-C [address], [place], [address], [facility] - [employer] [facility] 04/01/2023 13:18:30 OBGyn Episode No OBEpisode recorded.
== END 2024-03-31 13:18 | disposition home or self-care (01) ==
LOC: AMB 04-14 01:07
PROVIDERS: PCP Physician Assistant Medical; Visit Provider Internal Medicine
DX: J98.8 Other specified respiratory disorders (principal)
CPT/HCPCS: A0425; A0434